=== PATIENT | female | born 1955 | race Asian ===

== ENCOUNTER → 2022-03-30 09:59 | Outpatient (CLI) | payer MEDICARE, SELFPAY ==
--- NOTE | ~2022-03-30 | DEXA_ITS ---
Bone Density Report Name: ELLIS VELA Age: 66 Sex: Female Ethnicity: Date of : 1955 Indication: postmenopausal; screening for osteoporosis; history of glucocorticoids; Referring Provider: Neela Solis Study: Bone densitometry was performed. Exam Date: March 30, 2022 Accession number: [id number] Bone Density: Region BMD T-score Z-score Classification AP Spine (L1-L4) 0.915 -1.2 0.7 Osteopenia Femoral Neck (Left) 0.744 -0.9 0.7 Normal Total Hip (Left) 0.896 -0.4 0.9 Normal Femoral Neck (Right) 0.705 -1.3 0.3 Osteopenia Total Hip (Right) 0.851 -0.7 0.6 Normal Total Hip Mean 0.874 -0.6 0.8 Normal World Health Organization criteria for BMD impression classify patients as: Normal (T-score at or above -1.0), Osteopenia (T-score between -1.0 and -2.5), or Osteoporosis (T-score at or below -2.5). 10-year Fracture Risk(1): Major Osteoporotic Fracture 7.9% Hip Fracture 0.9% Reported Risk Factors: [place] (), Neck BMD=0.705, BMI=24.5, glucocorticoids (1) FRAX(R) Version 3.08. Fracture probability calculated for an untreated patient. Fracture probability may be lower if the patient has received treatment. Previous Exams: Region Exam Age BMD T-score BMD Change BMD Change Date g/cm2 vs Baseline vs Previous AP Spine(L1-L4) 03/30/2022 66 0.915 -1.2 -0.105* -0.091* 02/27/2019 63 1.006 -0.4 -0.014 -0.022 12/22/2015 60 1.028 -0.2 0.008 -0.012 11/20/2012 57 1.040 -0.1 0.020 -0.004 11/04/2010 55 1.044 0.0 0.024* 0.024* 09/25/2008 53 1.020 -0.2 Total Hip(Left) 03/30/2022 66 0.896 -0.4 -0.079* -0.058* 02/27/2019 63 0.954 0.1 -0.021 -0.032* 12/22/2015 60 0.986 0.4 0.011 -0.053* 11/20/2012 57 1.039 0.8 0.064* 0.061* 11/04/2010 55 0.978 0.3 0.003 0.003 09/25/2008 53 0.975 0.3 Total Hip(Right) 03/30/2022 66 0.851 -0.7 -0.118* -0.063* 02/27/2019 63 0.914 -0.2 -0.055* -0.061* 12/22/2015 60 0.975 0.3 0.006 -0.052* 11/20/2012 57 1.027 0.7 0.058* 0.072* 11/04/2010 55 0.956 0.1 -0.013 -0.013 09/25/2008 53 0.969 0.2 *Denotes significance at 95% confidence level, LSC for AP Spine = 0.022 g/cm2, LSC for Total Hip = 0.027 g/cm2 Clinical Information Provided by Patient:
--- NOTE | ~2022-03-30 | MM_ITS ---
EXAMINATION: MM screening [facility] BI w norbert HISTORY: Screening TECHNIQUE: Craniocaudal and mediolateral oblique 3-D tomosynthesis images were obtained and synthetic 2-D images were generated. CAD analysis was submitted and interpreted. COMPARISON: Comparison to multiple prior studies sequentially, with oldest reviewed study dated 12/23. BREAST PARENCHYMAL COMPOSITION: Breast composed of scattered areas of fibroglandular density FINDINGS: There are subtle ill-defined developing asymmetry centrally in the right breast on CC view. The left breast is stable. No new masses, calcifications or architectural distortion are identified to suggest malignancy. IMPRESSION: 1. Developing ill-defined asymmetries centrally in the right breast on CC view. 2. Additional mammographic views and possible breast ultrasound are recommended. BI-RADS Category 0: Incomplete: Needs additional imaging evaluation. Reviewed, dictated and finalized at location A. ER MIXER IMPRESSION: 1. Developing ill-defined asymmetries centrally in the right breast on CC view. 2. Additional mammographic views and possible breast ultrasound are recommended . BI-RADS Category 0: Incomplete: Needs additional imaging evaluation.
== END ==
PROVIDERS: Visit Provider Obstetrics & Gynecology
DX: Z12.31 Encounter for screening mammogram for malignant neoplasm of breast (principal); Z78.0 Asymptomatic menopausal state
CPT/HCPCS: 77063; 77067; 77080

== ENCOUNTER → 2022-04-26 09:13 | Outpatient (CLI) | payer MEDICARE, SELFPAY ==
--- NOTE | ~2022-04-26 | MMUS_ITS ---
EXAMINATION: MM diagnostic [facility] RT w norbert, US breast RT complete HISTORY: Follow-up right breast asymmetries TECHNIQUE: Additional 3-D tomosynthesis images of the right breast were performed and synthetic 2-D i mages were generated. CAD analysis was submitted and interpreted. High resolution complete right rahul st ultrasound was performed. COMPARISON: Comparison to multiple prior studies sequentially, with oldest reviewed study dated 12/2015. BREAST PARENCHYMAL COMPOSITION: Breast composed of scattered areas of fibroglandular density FINDINGS: MAMMOGRAPHIC FINDINGS: Right breast asymmetries compress with spot views, compatible with superimposed fibroglandular conten t. No suspicious masses or calcifications. ULTRASOUND: Complete bilateral US of all 4 quadrants of the breasts and retroareolar region was reviewed. Normal heterogeneous echotexture without focal solid or cystic mass. IMPRESSION: 1. No evidence for malignancy in the right breast. 2. Routine yearly screening mammogram and regular clinical breast examination are recommended. BI-RADS Category 1: Negative Reviewed, dictated and finalized at location B. UITO SPRAYER IMPRESSION: 1. No evidence for malignancy in the right breast. 2. Routine yearly screening mammogram and regular clinical breast examination a re recommended. BI-RADS Category 1: Negative
== END ==
PROVIDERS: PCP Obstetrics & Gynecology; Visit Provider Obstetrics & Gynecology
DX: R92.8 Other abnormal and inconclusive findings on diagnostic imaging of breast (principal)
CPT/HCPCS: 76641; 77061; 77065; G0279

== ENCOUNTER → 2023-05-25 12:10 | Outpatient (CLI) | payer MEDICARE, OTHER, SELFPAY ==
--- NOTE | ~2023-05-25 | MM_ITS ---
EXAMINATION: MM screening [facility] BI w norbert HISTORY: Screening mammogram TECHNIQUE: Craniocaudal and mediolateral oblique 3-D tomosynthesis images were obtained and synthetic 2-D images were generated. CAD analysis was submitted and interpreted. COMPARISON: 04/26/2022, 03/30/2022, 02/27/2019, 01/05/2014 BREAST PARENCHYMAL COMPOSITION: There are scattered areas of fibroglandular density. FINDINGS: No suspicious mass, calcification, or architectural distortion are identified in either julisa ast to suggest malignancy. There has been no suspicious interval change. IMPRESSION: 1. No mammographic evidence of malignancy. 2. Recommend routine screening mammography in one year. BI-RADS Category 1: Negative Reviewed, dictated and finalized at location A. ERSHIP COACH
== END ==
PROVIDERS: PCP Nurse Practitioner Obstetrics & Gynecology; Visit Provider Nurse Practitioner Obstetrics & Gynecology
DX: Z12.31 Encounter for screening mammogram for malignant neoplasm of breast (principal)
CPT/HCPCS: 77063; 77067

== ENCOUNTER 2024-08-28 11:15 | Outpatient (CLI) | payer MEDICARE, OTHER, SELFPAY ==
--- NOTE | ~2024-08-28 | MM_ITS ---
EXAMINATION: MM screening [facility] BI w norbert HISTORY: Screening TECHNIQUE: Craniocaudal and mediolateral oblique 3-D tomosynthesis images were obtained and synthetic 2-D images were generated. CAD analysis was submitted and interpreted. COMPARISON: Comparison to multiple prior studies sequentially, with oldest reviewed study dated 08/28. BREAST PARENCHYMAL COMPOSITION: Not dense: There are scattered areas of fibroglandular density. FINDINGS: There is no evidence of suspicious mass, calcification, or architectural distortion to sugg est malignancy in either breast. There has been no suspicious interval change. IMPRESSION: 1. No mammographic evidence of malignancy. 2. Recommend routine screening mammography in one year. BI-RADS Category 1: Negative Reviewed, dictated and finalized at location B.
== END 2024-08-28 11:16 | disposition home or self-care (01) ==
PROVIDERS: Visit Provider Student in an Organized Health Care Education/Training Program
DX: Z12.31 Encounter for screening mammogram for malignant neoplasm of breast (principal)
CPT/HCPCS: 77063; 77067

== ENCOUNTER 2024-10-18 10:57 | Outpatient (CLI) | payer MEDICARE, OTHER, SELFPAY ==
--- NOTE | ~2024-10-18 | DEXA_ITS ---
Bone Density Report Name: ELLIS VELA Age: 69 Sex: Female Ethnicity: Date of : 1955 Indication: osteopenia; rheumatoid arthritis; Referring Provider: UNKNOWN, UNKNOWN Study: Bone densitometry was performed. Exam Date: October 18, 2024 Accession number: [id number] Bone Density: Region BMD T-score Z-score Classification AP Spine(L1-L4) 0.876 -1.6 0.5 Osteopenia Femoral Neck (Left) 0.712 -1.2 0.5 Osteopenia Total Hip (Left) 0.872 -0.6 0.9 Normal Femoral Neck (Right) 0.682 -1.5 0.3 Osteopenia Total Hip (Right) 0.820 -1.0 0.5 Normal Total Hip Mean 0.846 -0.8 0.7 Normal World Health Organization criteria for BMD impression classify patients as: Normal (T-score at or above -1.0), Osteopenia (T-score between -1.0 and -2.5), or Osteoporosis (T-score at or below -2.5). 10-year Fracture Risk(1): Major Osteoporotic Fracture 7.0% Hip Fracture 1.1% Reported Risk Factors: [place] (), Neck BMD=0.682, BMI=23.8, rheumatoid arthritis (1) FRAX(R) Version 3.08. Fracture probability calculated for an untreated patient. Fracture probability may be lower if the patient has received treatment. Previous Exams: -- Region Exam Age BMD T-score BMD Change BMD Change Date g/cm2 vs Baseline vs Previous -- AP Spine (L1-L4) 10/18/2024 69 0.876 -1.6 -14.1%* -4.3%* 03/30/2022 66 0.915 -1.2 -10.3%* -9.0%* 02/27/2019 63 1.006 -0.4 -1.4% -2.2% 12/22/2015 60 1.028 -0.2 0.8% -1.1% 11/20/2012 57 1.040 -0.1 2.0% -0.4% 11/04/2010 55 1.044 0.0 2.3%* 2.3%* 09/25/2008 53 1.020 -0.2 Total Hip(Left) 10/18/2024 69 0.872 -0.6 -10.6%* -2.7% 03/30/2022 66 0.896 -0.4 -8.1%* -6.1%* 02/27/2019 63 0.954 0.1 -2.1% -3.3%* 12/22/2015 60 0.986 0.4 1.1% -5.1%* 11/20/2012 57 1.039 0.8 6.6%* 6.2%* 11/04/2010 55 0.978 0.3 0.3% 0.3% 09/25/2008 53 0.975 0.3 Total Hip(Right) 10/18/2024 69 0.820 -1.0 -15.3%* -3.6%* 03/30/2022 66 0.851 -0.7 -12.2%* -6.9%* 02/27/2019 63 0.914 -0.2 -5.7%* -6.3%* 12/22/2015 60 0.975 0.3 0.6% -5.1%* 11/20/2012 57 1.027 0.7 6.0%* 7.5%* 11/04/2010 55 0.956 0.1 -1.4% -1.4% 09/25/2008 53 0.969 0.2 -- *Denotes significance at 95% confidence level, LSC for AP Spine = 0.022 g/cm2, LSC for Total Hip = 0.027 g/cm2 Clinical Information Provided by Patient: Has rheumatoid arthritis Has used the following medications: Calcium Patient maximum height was 58 Menopause Age: 51 Onset of menses at age 13 Number of children 1 Impression: The patient has low bone mass, based on the Total Spine T-score. The patient has an estimated ten-year risk of hip fracture of 1.1% and an estimated ten-year risk of major fracture of 7%, based on the WHO FRAX algorithm. The BMD for the AP Spine (L1-L4) decreased, changing by -4.3% since the last DXA exam. The BMD for the Total Hip(Right) decreased, changing by -3.6% since the last DXA exam. Discussion: BONE DENSITY IS LOW AT ONE OR MORE SKELETAL SITES. This patient's lowest T-score is low at one or more skeletal sites. It meets the World Health Organization's (WHO) criteria for ?low bone mass? (T-score between -1.0 and -2.5). The patient's 10-year risk of fracture as calculated by FRAX is less than the threshold where pharmacological therapy is recommended by the National Osteoporosis Foundation (NOF). However, all treatment decisions require clinical judgment and consideration of individual patient factors, including patient preferences, comorbidities, previous drug use, risk factors not captured in the FRAX model (e.g., frailty, falls, vitamin D deficiency, increased bone turnover, interval significant decline in bone density) and possible under or overestimation of fracture risk by FRAX. The patient should follow a healthful lifestyle (good nutrition with adequate calcium and vitamin D, and appropriate weight-bearing exercise). Follow-Up: Consider repeating this study in 2 years to reassess this patient's status, or sooner if there is some new clinical indication. Reported by: CHIKIS on 10/18/2024 11:21:00 AM. Reviewed, dictated and finalized at location A.
== END 2024-10-18 10:58 | disposition home or self-care (01) ==
DX: M85.89 Other specified disorders of bone density and structure, multiple sites (principal)
CPT/HCPCS: 77080